=== PATIENT | female | born 1960 | race Caucasian/White ===

== ENCOUNTER 2017-09-04 10:42 | Emergency (ER) | payer OTHER ==
[2017-09-04] MEDS: KETOROLAC 30 MG INJ IM (11:29)
== END 2017-09-04 11:54 | disposition home or self-care (01) ==
LOC: FTE 10:42
DX: M75.92 Shoulder lesion, unspecified, left shoulder (principal); I10 Essential (primary) hypertension; E11.9 Type 2 diabetes mellitus without complications; Z79.84 Long term (current) use of oral hypoglycemic drugs
CPT/HCPCS: 73030; 96372; 99284-25